=== PATIENT | male | born 1955 | race Caucasian/White ===

== ENCOUNTER 2017-12-26 16:08 | Emergency (ER) | payer OTHER ==
[~2017-12-26] VITALS: Ht 172.7 cm; Wt 81.8 kg
[2017-12-26 19:32] LABS: CALCIUM 9.4 mg/dL (8.5-10.1); CARBON DIOXIDE 26.6 mmol/L (21-32); CHLORIDE SERUM 104 mmol/L (98-107); CREATININE SERUM 1.2 mg/dL (0.7-1.3); GFR1 > 60 mL/min; GLUCOSE SERUM 94 mg/dL (74-106); POTASSIUM SERUM 3.8 mmol/L (3.5-5.1); SODIUM SERUM 141 mmol/L (136-145)
[2017-12-26 19:40] LABS: microscopic required? NO
[2017-12-26 19:45] LABS: BASOPHIL % 0.3 % (0-2); PLATELET COUNT 269 x10^3mcL (130-400); RED CELL DISTRIBUTION WIDTH 12.6 % (11.5-14.5)
[2017-12-26 19:53] LABS: UA SPECIFIC GRAVITY >=1.030 (1.005-1.035); urine erythrocyte NEGATIVE (NEGATIVE)
[2017-12-26 22:35] VITALS: BP 128/86
== END 2017-12-26 22:35 | disposition home or self-care (01) ==
LOC: ED 16:08
PROVIDERS: Emergency Medicine Emergency Medical Services
DX: R59.0 Localized enlarged lymph nodes (principal)
CPT/HCPCS: 36415; J1885

== ENCOUNTER 2018-01-04 11:22 | Emergency (ER) | payer OTHER ==
[~2018-01-04] VITALS: Ht 167.6 cm; Wt 74.4 kg
[2018-01-04 11:26] VITALS: Ht 167.6 cm; Wt 74.4 kg
[2018-01-04 12:48] LABS: BASOPHIL % 0.2 % (0-2); PLATELET COUNT 302 x10^3mcL (130-400); RED CELL DISTRIBUTION WIDTH 13.9 % (11.5-14.5)
[2018-01-04 12:53] LABS: UA SPECIFIC GRAVITY >=1.030 (1.005-1.035); microscopic required? YES; urine erythrocyte TRACE (NEGATIVE)
[2018-01-04 13:38] LABS: CALCIUM 9.7 mg/dL (8.5-10.1); CARBON DIOXIDE 28.2 mmol/L (21-32); CHLORIDE SERUM 102 mmol/L (98-107); CREATININE SERUM 1.1 mg/dL (0.7-1.3); GFR1 > 60 mL/min; GLUCOSE SERUM 81 mg/dL (74-106); POTASSIUM SERUM 4.3 mmol/L (3.5-5.1); SODIUM SERUM 138 mmol/L (136-145)
[2018-01-04 19:50] VITALS: BP 135/77
== END 2018-01-04 19:50 | disposition home or self-care (01) ==
LOC: ED 11:22
PROVIDERS: Emergency Medicine
DX: C85.83 Other specified types of non-Hodgkin lymphoma, intra-abdominal lymph nodes (principal)
CPT/HCPCS: J1885; J3010; J7030; Q0092

== ENCOUNTER 2018-01-20 18:01 | Inpatient (IN) | payer OTHER ==
[~2018-01-20] VITALS: Ht 167.6 cm; Wt 74.5 kg
[2018-01-20 18:22] VITALS: Ht 167.6 cm; Wt 74.5 kg
[2018-01-20 20:52] LABS: BASOPHIL % 0.3 % (0-2); PLATELET COUNT 291 x10^3mcL (130-400); RED CELL DISTRIBUTION WIDTH 13.8 % (11.5-14.5)
[2018-01-20 21:06] LABS: ALBUMIN 3.8 g/dL (3.4-5.0); BILIRUBIN TOTAL 0.8 mg/dL (0.20-1.00); CARBON DIOXIDE 31.7 mmol/L (21-32); CREATININE SERUM 1.5 mg/dL (0.7-1.3); POTASSIUM SERUM 4.2 mmol/L (3.5-5.1); TOTAL PROTEIN, SERUM 7.3 g/dL (6.4-8.2)
[2018-01-20 21:30] LABS: CALCIUM 13.7 mg/dL (8.5-10.1)
[2018-01-20] MEDS ORDERED: ACID REDUCER75 MG PO (22:10)
[2018-01-20 23:01] VITALS: BP 145/86
[2018-01-21 05:09] VITALS: BP 111/80
[2018-01-21 07:30] LABS: BASOPHIL % 0.4 % (0-2); PLATELET COUNT 267 x10^3mcL (130-400); RED CELL DISTRIBUTION WIDTH 13.6 % (11.5-14.5)
[2018-01-21 07:51] LABS: BILIRUBIN TOTAL 0.61 mg/dL (0.20-1.00); CALCIUM 11.6 mg/dL (8.5-10.1); CARBON DIOXIDE 26.8 mmol/L (21-32); CREATININE SERUM 1.5 mg/dL (0.7-1.3); POTASSIUM SERUM 4.1 mmol/L (3.5-5.1)
[2018-01-21 08:00] LABS: TOTAL PROTEIN, SERUM 5.9 g/dL (6.4-8.2)
[2018-01-21 10:22] VITALS: BP 112/54
[2018-01-21 14:00] VITALS: BP 122/76
== END 2018-01-21 15:15 | disposition home or self-care (01) | DRG 440 ==
LOC: ED 18:01 → MU 21:52
PROVIDERS: Emergency Medicine; Internal Medicine Pulmonary Disease
DX: K85.90 Acute pancreatitis without necrosis or infection, unspecified (principal)
CPT/HCPCS: J2270; J3490; J7030; Q0162